=== PATIENT | female | born 1990 | race Caucasian/White ===

== ENCOUNTER 2016-09-29 23:59 | Emergency (ER) | payer BC, OTHER ==
[2016-09-30 03:42] LABS: CHLORIDE,CL 102 mmol/L (101-111); SODIUM,NA 136 mmol/L (135-145)
[2016-09-30] MEDS ORDERED: Ibuprofen 600 MG Tab PO ONE (04:05)
[2016-09-30] MEDS ORDERED: Cephalexin 500 MG Cap PO ONE (04:05)
--- NOTE | 2016-09-30 04:07 | EDM.PDOC ---
ED HPI GENERAL MEDICAL PROBLEM - General Chief Complaint: Neuro Symptoms/Deficits Stated Complaint: NUMB SWOLLEN AND BITES ALL OVER Time Seen by Provider: 09/30/16 01:00 Source of Information: Reports: Patient History Limitations: Reports: No Limitations - History of Present Illness INITIAL COMMENTS - FREE TEXT/NARRATIVE: ED with c/o red spots, possibly bug bites for past week, last few days, joints feel achy and tonight fingers feel numb. Onset: Today Bilateral Leg Pain Score (Numeric/FACES): 8 - Related Data Allergies Allergy/AdvReac Type Severity Reaction Status Date / Time No Known Allergies Allergy Verified 09/30/16 00:35 Home Meds: Home Meds Levonorgestrel [Beth] 1 VAG ASDIRECTED 09/30/16 [History] Past Medical History Cardiovascular History: Reports: None Respiratory History: Reports: None Gastrointestinal History: Reports: None Genitourinary History: Reports: None Musculoskeletal History: Reports: None Neurological History: Reports: None Psychiatric History: Reports: None Endocrine/Metabolic History: Reports: None Hematologic History: Reports: None Immunologic History: Reports: None Oncologic (Cancer) History: Reports: None Dermatologic History: Reports: None - Infectious Disease History Infectious Disease History: Reports: Chicken Pox - Past Surgical History HEENT Surgical History: Reports: Adenoidectomy, Other (See Below) Social & Family History - Family History Family Medical History: Noncontributory - Tobacco Use Smoking Status *Q: Never Smoker Second Hand Smoke Exposure: No - Caffeine Use Caffeine Use: Reports: None - Alcohol Use Days Per Week of Alcohol Use: 0 - Recreational Drug Use Recreational Drug Use: No ED ROS GENERAL - Review of Systems Review Of Systems: See Below Constitutional: Reports: Malaise HEENT: Reports: No Symptoms Respiratory: Reports: No Symptoms Cardiovascular: Reports: No Symptoms Endocrine: Reports: No Symptoms GI/Abdominal: Reports: No Symptoms Musculoskeletal: Reports: Hand Pain Skin: Reports: Pruritis, Rash, Change in Color Psychiatric: Reports: No Symptoms ED EXAM, GENERAL - Physical Exam Exam: See Below Exam Limited By: No Limitations General Appearance: Alert, Anxious, Mild Distress Eye Exam: Bilateral Eye: EOMI Ears: Normal External Exam, Normal TMs Nose: Normal Inspection Throat/Mouth: Normal Inspection Head: Atraumatic, Normocephalic Respiratory/Chest: No Respiratory Distress, Lungs Clear, Normal Breath Sounds Cardiovascular: Normal Peripheral Pulses, Regular Rate, Rhythm, No Edema GI/Abdominal: Normal Bowel Sounds, Soft Neurological: Alert, Oriented Psychiatric: Anxious Skin Exam: Warm, Dry, Intact, Rash (scattered red raised papular lesions over back, legs and few on arms) Course - Vital Signs Last Recorded V/S: Last Vital Signs Temp 96.9 F 09/30/16 04:21 Pulse 63 09/30/16 04:21 Resp 18 09/30/16 04:21 BP 125/59 L 09/30/16 04:21 Pulse Ox 99 09/30/16 04:21 - Orders/Labs/Meds Labs: Laboratory Tests 09/30/16 09/30/16 09/30/16 Range/Units 03:15 03:15 03:15 WBC 15.0 H (5.0-10.0) 10^3/uL RBC 4.93 (4.2-5.4) 10^6/uL Hgb 14.3 (12.0-16.0) g/dL Hct 42.3 (37.0-47.0) % MCV 85.8 (80-100) fL MCH 29.0 (27.0-34.0) pg MCHC 33.8 (33.0-35.0) g/dL Plt Count 272 (150-450) 10^3/uL Neut % (Auto) 75.0 (42.2-75.2) % Lymph % (Auto) 18.0 L (20.5-50.1) % [place] % (Auto) 6.3 (2-8) % Eos % (Auto) 0.5 L (1.0-3.0) % Baso % (Auto) 0.2 (0.0-1.0) % Sodium 136 (135-145) mmol/L Potassium 3.5 L (3.6-5.0) mmol/L Chloride 102 (101-111) mmol/L Carbon Dioxide 22.0 (21.0-31.0) mmol/L Anion Gap 15.5 BUN 14 (7-18) mg/dL Creatinine 0.7 (0.6-1.3) mg/dL Est Cr Clr Drug Dosing 115.01 mL/min Estimated GFR (MDRD) > 60 Glucose 88 (74-105) mg/dL Calcium 9.3 (8.4-10.2) mg/dl C-Reactive Protein 1.0 (0.0-1.3) mg/dL Meds: Medications Discontinued Medications Generic Name Dose Route Start Last Admin Trade Name Steve PRN Reason Stop Dose Admin Cephalexin 500 mg 09/30/16 04:05 09/30/16 04:16 Keflex PO 09/30/16 04:06 500 mg ONETIME ONE Administration Ibuprofen 600 mg 09/30/16 04:05 09/30/16 04:16 Motrin PO 09/30/16 04:06 600 mg ONETIME ONE Administration Departure - Departure Time of Disposition: 04:01 Disposition: Home, Self-Care 01 Condition: Good Clinical Impression: Joint pain, Folliculitis - Discharge Information Instructions: Cellulitis, Adult Forms: ED Department Discharge Additional Instructions: keflex 500mg one 4 times dialy for one week ibuprofen 600mg one every 8 hours as needed for joint pain recheck clinic Tuesday if not improving ice to knee, may wrap with ice for comfort
[2016-09-30 04:28] VITALS: BP 125/59
== END 2016-09-30 04:20 | disposition home or self-care (01) ==
LOC: DL.ED 23:59
DX: L73.9 Follicular disorder, unspecified (principal); Z98.890 Other specified postprocedural states
CPT/HCPCS: 36415; 80048; 85025; 86140; 99283; A9270

== ENCOUNTER 2018-05-01 09:56 | Inpatient (IN) | payer BC, MEDICAID ==
[~2018-05-01 09:56] MED LIST: Acetaminophen 325 MG Tab PO PRN; Sodium Chloride 0.9% 10 ML Syringe FLUSH PRN; Terbutaline 1 MG/ML SDV SUBCUT ONE
[2018-05-01] MEDS ORDERED: Sodium Chloride 0.9% 10 ML Syringe FLUSH PRN (10:00)
[2018-05-01] MEDS ORDERED: Tranexamic Acid 1,000 MG in Sodium Chloride 0.9% 100 ML IV PRN (10:00)
[2018-05-01] MEDS ORDERED: Lactated Ringers 1,000 ML IV SCH ×2 (10:00→13:45)
[2018-05-01] MEDS ORDERED: Ondansetron 4 MG/2 ML SDV IVPUSH PRN (10:00)
[2018-05-01] MEDS ORDERED: Citric Acid/Sodium Citrate Solution 30 ML Cup PO ONE (10:00)
[2018-05-01] MEDS: Lactated Ringers 1,000 ML IV SCH ×3 (10:20→16:09)
[2018-05-01] MEDS ORDERED: Oxytocin/Normal Saline 60 UNIT/1,000 ML BAG ONE (11:06)
[2018-05-01] MEDS ORDERED: Oxytocin/Normal Saline 30 UNIT/500 ML BAG IV SCH (13:12)
[2018-05-01] MEDS ORDERED: diphenhydrAMINE 50 MG/ML SDV IVPUSH PRN (13:42)
[2018-05-01] MEDS ORDERED: Methylergonovine 0.2 MG/1 ML Amp IM PRN (13:42)
[2018-05-01] MEDS ORDERED: Misoprostol 400 MCG (4 X 100 MCG TAB) RECTAL PRN (13:42)
[2018-05-01] MEDS ORDERED: Naloxone 2 MG/2 ML Syringe IVPUSH PRN (13:42)
[2018-05-01] MEDS ORDERED: Measles, Mumps & Rubella Vaccine 0.5 ML SDV SUBCUT ONE (13:42)
[2018-05-01] MEDS ORDERED: Acetaminophen 325 MG Tab PO PRN (13:42)
[2018-05-01] MEDS ORDERED: ePHEDrine 50 MG/ML SDV IVPUSH PRN (13:42)
[2018-05-01] MEDS ORDERED: Acetaminophen/oxyCODONE 325-5 MG Tab PO PRN (13:42)
[2018-05-01] MEDS ORDERED: Fluconazole 100 MG Tab PO ONE ×2 (14:00→19:45)
[2018-05-01] MEDS ORDERED: Metoclopramide 10 MG/2 ML SDV IV PRN (15:25)
[2018-05-01] MEDS: Ketorolac 30 MG/ML SDV IVPUSH SCH (19:47)
[2018-05-01] MEDS: Simethicone 80 MG Tab.Chew PO SCH ×2 (21:03→22:29)
--- NOTE | 2018-05-01 21:06 | OR ---
DATE: 05/01/2018 PREOPERATIVE DIAGNOSES: 1. 39 and 1/7 weeks' gestation. 2. 3, para 1-0-1-1. 3. Class 2 obesity. 4. History of miscarriage. 5. History of section x1. 6. High-risk due to previous obstetrical problem in the third trimester. 7. Subclinical hypothyroidism. 8. Rubella nonimmune. 9. History of genital herpes. 10.Breech presentation at last clinic appointment. POSTOPERATIVE DIAGNOSES: 1. 39 and 1/7 weeks' gestation. 2. 3, para 1-0-1-1. 3. Class 2 obesity. 4. History of miscarriage. 5. History of section x1. 6. High-risk due to previous obstetrical problem in the third trimester. 7. Subclinical hypothyroidism. 8. Rubella nonimmune. 9. History of genital herpes. 10.Breech presentation at last clinic appointment. 11.Status post repeat low transverse section without complications. 12.Baby found to be in compound neck and arm presentation. BRIEF HISTORY: A 27-year-old female admitted to the hospital with the above- listed diagnoses, for planned repeat for breech and due to prior history of , not a good candidate for external cephalad version and vaginal attempt. See admission history and physical for full details. CONSENT: Before patient was brought to the operating room, she had opportunity to have her questions answered. After we discussed indications, risks, benefits, and alternatives of repeat low transverse section including but not limited to potential for injury to internal organs and adjacent structures including large blood vessels, nerves, veins, intestines, bladder, fallopian tubes, ovaries, uterus, and even potential injury to the baby, potential for complications resulting in transfer for her and/or the baby and even potential complications including , risk of bleeding to the point of requiring a blood transfusion as well as its inherent risks was also discussed. Appropriate forms were signed and can be found in the chart. SURGEON: Albina Mckeon MD. GREEN PRIZE PACKER: Caitlyn Gregory MD. SECOND ENROLLMENT SPECIALIST: Josué Yanes, MS-III. ANESTHESIA: Spinal. DETAILS OF PROCEDURE: The patient was brought to the operating room and spinal anesthesia obtained. She was then laid in dorsal supine position with leftward tilt and Chavez indwelling catheter placed. She was prepped and draped in usual sterile fashion with pannus taped up to be held out of the way. A skin incision was made at 12:11 a.m. with scalpel and carried down to the underlying fascia. This layer was then extended bilaterally with cautery and superior fascial edge grasped with Kochers, tented up, and rectus muscles dissected off bluntly and with cautery. Inferior fascial edge, treated in similar fashion. Rectus muscles in midline with hemostats and peritoneal cavity entered with blunt dissection, assisted by some cautery for tight scar tissue. The Josué retractor was then placed in appropriate location for uterine incision decided, attempted to create a bladder flap. There is really insufficient peritoneal lining. Therefore, uterine incision made in a low transverse location at 12:21 a.m., and the baby's head was noted to be at this location prior to the incision. Upon opening the uterus, baby was actually found to be in a neck down hand compound presentation. The baby's head was maneuvered and brought up through the uterine incision. Remainder of the baby delivered easily thereafter. Nose and mouth were bulb suctioned, and 3-vessel umbilical cord was doubly clamped, cut, baby taken to the warmer for further evaluation. Cord blood sample obtained. Placenta was simultaneously being delivered by Dr. Gregory while we were taking care of the baby. It was noted that the edge of the placenta was all the way down into the uterine scar itself, but not an accreta. Uterine cavity cleared of all clots and debris with a dry lap sponge. Hysterotomy site closed with a running lock stitch of 0 Vicryl in the usual fashion. Additional [id number] stitch x1 was placed and ensured hemostasis. This layer was irrigated and cleared of any clots and debris. Josué retractor removed and pericolic gutters cleared of any clots and debris, after which time, we then reinspected the hysterotomy site and it remained hemostatic. The peritoneal layer was closed with a remnant of 0 Vicryl in a running fashion bringing together the rectus muscles at the inferior edge. We then called for another 0 Vicryl stitch to bring together the rectus muscles in the superior aspect as the patient was having vomiting and the intestines were trying to protrude through that peritoneal repair and there was significant concern for potential development of hernia. This layer was then irrigated and cleared of any clots and debris. Fascia was then closed with a running stitch of 0 looped PDS in the usual fashion. Subcutaneous tissues then dried and cleaned and skin closed with mc. The patient tolerated the procedure well. COMPLICATIONS: Loss of suction during closure of the peritoneal layer, therefore, irrigating and use of sponges for drying of each layer was necessary. FINDINGS: Viable male , scores of eight and nine. Weight 7 pounds 12 ounces, grams pending. ESTIMATED BLOOD LOSS: 500 mL. IV FLUIDS: 1200 mL crystalloid. URINE OUTPUT: 600 mL clear. DISPOSITION: Mother to wait in PACU, baby will return to the nursery with the father and will be reunited as soon as possible. [facility] /[id number] MTDD
[2018-05-01] MEDS: Ferrous Sulfate 325 MG Tab PO SCH (22:28)
[2018-05-01] MEDS ORDERED: Promethazine 25 MG/ML SDV IM PRN (22:35)
[2018-05-02] MEDS: Ketorolac 30 MG/ML SDV IVPUSH SCH ×2 (01:17→06:29)
[2018-05-02] MEDS: Levothyroxine 25 MCG Tab PO SCH (06:27)
[2018-05-02] MEDS: Ferrous Sulfate 325 MG Tab PO SCH ×2 (08:39→18:02)
[2018-05-02] MEDS: Prenatal Multivitamin with Calcium/Folic Acid/Iron Tab PO SCH (08:39)
[2018-05-02] MEDS: Docusate Sodium 100 MG Cap PO PRN ×2 (08:39→21:52)
[2018-05-02] MEDS: Simethicone 80 MG Tab.Chew PO SCH ×4 (08:39→21:52)
[2018-05-02] MEDS ORDERED: Dexamethasone 4 MG/ML SDV IV ONE (10:25)
[2018-05-02] MEDS ORDERED: Lidocaine 2% 20 ML MDV ONE (10:25)
[2018-05-02] MEDS ORDERED: Ketorolac 30 MG/ML SDV IVPUSH ONE (10:25)
[2018-05-02] MEDS ORDERED: Bupivacaine 0.75%/D5W 2 ML Amp ONE (10:25)
[2018-05-02] MEDS ORDERED: Morphine PF 1 MG/ML Amp ONE (10:25)
[2018-05-02] MEDS ORDERED: Lactated Ringers 1,000 ML IV ONE (10:25)
[2018-05-02] MEDS ORDERED: Ondansetron 4 MG/2 ML SDV IV ONE (10:25)
[2018-05-02] MEDS ORDERED: Oxytocin/Normal Saline 30 UNIT/500 ML BAG IV ONE (10:36)
[2018-05-02] MEDS: Acetaminophen/oxyCODONE 325-5 MG Tab PO PRN ×3 (12:45→21:52)
[2018-05-02] MEDS: Ibuprofen 800 MG Tab PO PRN (16:56)
[2018-05-03] MEDS: Acetaminophen/oxyCODONE 325-5 MG Tab PO PRN ×5 (02:12→21:24)
[2018-05-03] MEDS: Ibuprofen 800 MG Tab PO PRN ×3 (02:12→17:26)
[2018-05-03] MEDS: Levothyroxine 25 MCG Tab PO SCH (06:13)
--- NOTE | 2018-05-03 09:05 | PN ---
DATE: 05/02/2018 SUBJECTIVE: The patient is a 27-year-old G3, para 2-0-1-2 who is postoperative day 1 after a planned repeat for breech presentation and prior history of . Loss of suction occurred during the procedure, necessitating use of irrigation and sponges for drying. Otherwise, procedure was uncomplicated. The patient has no acute events overnight. She is not yet ambulating and just had Chavez catheter removed this morning, but is tolerating a regular diet. The patient is and states that is going well, although baby has difficulties latching to the right breast. Her pain is well controlled with pain medications, although she notes that she feels a greater pain on the left side of her incision. She is otherwise doing well and is in good spirits for the day. OBJECTIVE: Vital Signs: Today temperature of 97.6 Farenheit, pulse rate 83, blood pressure 112/52, respiratory rate 18, and pulse ox 97% on room air. General: The patient is awake and alert, friendly, and sitting up, nursing baby in bed. HEENT: Normocephalic and atraumatic. Extraocular movements intact. Mucous membranes pink and moist. Neck: Supple with no lymphadenopathy. Heart: Regular rate and rhythm. No murmurs, rubs, or gallops. Lungs: Clear to auscultation bilaterally. No rhonchi or wheezing. Abdomen: Soft, nondistended. Bowel sounds in all 4 quadrants. Uterus is palpated at the level of the umbilicus. Incision is covered by paper tape. Some serosanguinous drainage noted centrally, but no erythema or edema is noted. Extremities: No edema or erythema. Calves are nontender to palpation. LABORATORY DATA: White blood cell count 13.5, up from 11.0 yesterday. Hemoglobin and hematocrit are 9.1/28.1, down from 11.4/34.9 yesterday. ASSESSMENT: Pilar is postoperative day #1 from repeat low-transverse section delivering a male at 39 weeks 1 day gestation. 1. 39 and 1/7 week gestation. 2. 3, para 2-0-1-2. 3. Class 2 obesity. 4. History of miscarriage. 5. History of section x1. 6. High-risk due to previous obstetrical problem in the third trimester. 7. Subclinical hypothyroidism. 8. Rubella non-immune. 9. History of genital herpes. PLAN: 1. Routine cares. 2. Continue encourage breast feeding. 3. Encourage ambulation now that catheter has been removed. 4. We will replace dressing and place Aquacel dressing today. 5. Continue normal diet as tolerated. 6. Anticipate discharge either tomorrow or . Patient seen and examined. Agree with note as scribed on my behalf by Alejandro Hernandez, MS4. -[facility] 05/10/18 0923. MODL /[id number] MTDRyan
[2018-05-03] MEDS: Simethicone 80 MG Tab.Chew PO SCH ×4 (09:21→20:32)
[2018-05-03] MEDS: Prenatal Multivitamin with Calcium/Folic Acid/Iron Tab PO SCH (09:22)
[2018-05-03] MEDS: Ferrous Sulfate 325 MG Tab PO SCH ×2 (09:22→17:26)
[2018-05-03] MEDS: Docusate Sodium 100 MG Cap PO PRN ×2 (09:22→20:32)
[2018-05-04] MEDS: Acetaminophen/oxyCODONE 325-5 MG Tab PO PRN ×3 (02:39→12:11)
[2018-05-04] MEDS: Ibuprofen 800 MG Tab PO PRN ×2 (02:40→12:10)
[2018-05-04] MEDS: Levothyroxine 25 MCG Tab PO SCH (07:58)
[2018-05-04] MEDS: Ferrous Sulfate 325 MG Tab PO SCH (07:59)
[2018-05-04] MEDS: Prenatal Multivitamin with Calcium/Folic Acid/Iron Tab PO SCH (08:00)
[2018-05-04] MEDS: Simethicone 80 MG Tab.Chew PO SCH ×2 (08:00→12:09)
[2018-05-04] MEDS: Docusate Sodium 100 MG Cap PO PRN (08:03)
[2018-05-04] MEDS ORDERED: Bisacodyl 10 MG Supp RECTAL ONE (08:03)
--- NOTE | 2018-05-04 09:04 | PN ---
DATE: 05/03/2018 SUBJECTIVE: The patient is a 27-year-old G3, para 2-0-1-2, postoperative day 2 after planned repeat section for breach presentation and prior history of section. She has no acute events overnight. She has been ambulating, although states that she still has quite a bit of incisional pain, particularly on the right. She has been taking Percocet and Motrin as often as prescribed and feels that it is not helping with the pain. The patient is , states that is going well although she is tired and feels that infant has had difficulty latching today. Has tried a nipple shield at times with some success, but is unsure if difficulty with is due to infant or simply due to her being tired. OBJECTIVE: Vital Signs: Temperature 97.0, pulse rate 77, blood pressure 106/59, respirations 18, and pulse ox 97% on room air. General: Pilar is awake and alert, but tired looking, sitting in bed, nursing infant. HEENT: Normocephalic and atraumatic. Extraocular movements intact. Mucous membranes pink and moist. Neck: Supple. No lymphadenopathy. Heart: Regular rate and rhythm. No murmurs, rubs, or gallops. Lungs: Clear to auscultation bilaterally. No rhonchi or wheezing. Abdomen: Soft and nontender with positive bowel sounds in all 4 quadrants. Uterus is firm at the level of the umbilicus. Incision: Aquacel dressing in place. No surrounding erythema or signs of infection. Extremities: Warm and dry. No edema. No calf tenderness. ASSESSMENT: Pilar is postoperative day 2 from repeat low-transverse section, delivering a male infant at 39 weeks 1-day gestation. 1. 39 and 1/7 week gestation. 2. 3, para 2-0-1-2. 3. Class 2 obesity. 4. History of miscarriage. 5. History of section x1. 6. High-risk due to previous obstetrical problem in 3rd trimester. 7. Subclinical hypothyroidism. 8. Rubella non-immune. 9. History of genital herpes. PLAN: 1. Continue routine cares. 2. Continue encourage with consultation with qa consultant as needed. 3. Encourage ambulation. Discussed taking Percocet and ambulating 30 minutes after taking it in order to encourage more ambulation. 4. Continue normal diet as tolerated. 5. Will need MMR vaccine at discharge. 6. Anticipate discharge tomorrow pending infant circumcision and discharge. Patient seen and examined. Agree with note as scribed on my behalf by Alejandro Hernandez, 4. -[facility] 05/10/18 0924. MODL /[id number] [facility]
[2018-05-04 10:48] VITALS: BP 116/73
--- NOTE | 2018-05-05 07:41 | DISCH ---
ADMITTING DIAGNOSES: 1. A 39 weeks 1-day gestation. 2. 3, para 1-0-1-1. 3. Class 2 obesity. 4. History of miscarriage. 5. History of section x1. 6. High-risk due to previous obstetrical problem in the third trimester. 7. Subclinical hypothyroidism. 8. Rubella nonimmune. 9. History of genital herpes. 10.Breech presentation. DISCHARGE DIAGNOSES: Same plus 1. Status post repeat low transverse section with delivery of a live . 2. Class 2 obesity. 3. Subclinical hypothyroidism. 4. Rubella nonimmune. PROCEDURE: 1. Repeat low transverse section due to breech presentation and previous section. Found to be compound presentation. 2. MMR Administration CONSULTATION: treasury consultant. HISTORY OF PRESENT ILLNESS: Pilar is a 27-year-old, G3, para 1-0-1-1, now para 2-0-1-2, who presented for planned repeat section for breech presentation and history of prior , not a good candidate for external cephalic version and vaginal attempt. labs included blood type A positive, group B streptococcus negative, and rubella nonimmune. HOSPITAL COURSE: The patient was admitted for planned repeat . During the procedure, there was loss of suction during the closure of the peritoneal layer, thus requiring irrigation and use of sponges for drying of each layer. The patient tolerated the procedure well and delivered a viable male with scores of 8 and 9, weighing 7 pounds 12 ounces. Mother was taken to the delivery floor for [id number] and initiation of breast feeding. On postoperative day #1, the Chavez catheter was removed, and the patient was ambulating and tolerating diet well, passing flatus, and pain well managed on oral medications. On postoperative day #3, the patient had a bowel movement. The pain was well controlled, and the patient stated she was ready for discharge. PHYSICAL EXAMINATION: Vital Signs: Reviewed in the [facility] chart. Stable and normal General: Pilar is alert and awake, standing next to infant buggy, appearing in no distress. HEENT: Normocephalic and atraumatic. Extraocular movements are intact. Mucous membranes are pink and moist. Neck: Supple. No lymphadenopathy. Heart: Regular rate and rhythm. No murmurs, rubs, or gallops. Lungs: Clear to auscultation bilaterally. No rhonchi or wheezing. Abdomen: Bowel sounds in all 4 quadrants. Nondistended. Uterus is firm at the level of the umbilicus. Aquacel dressing is in place. Area under pannus is moist but is not erythematous or edematous. No signs of infection. Extremities: Warm and dry. No edema and no calf tenderness. CONDITION: Good. DISPOSITION: Home. DISCHARGE MEDICATIONS: Percocet 5/325 mg 1-2 tabs PO Q4H PRN pain #30 DISCHARGE INSTRUCTIONS: The patient was advised to restrict lifting to only lifting baby or baby in carrier. Can continue diet as tolerated. The patient to call if she notices fever, redness or swelling around her wound. FOLLOWUP: The patient to schedule visit in [address] Cordero for a check. Patient seen and examined. Agree with note as scribed on my behalf by Alejandro Hernandez MS4. -occupational therapy professor 05/10/18 0927 [facility] /[id number] MTDRyan
== END 2018-05-04 15:05 | disposition home or self-care (01) | DRG 540 ==
LOC: UNDOADMOB 09:56 → DL.OB 09:56 → OBSVTOIN 12:21
PROVIDERS: ADMIT Family Medicine; ATTEND Family Medicine
PROC: 10D00Z1 Extraction of Products of Conception, Low, Open Approach (ICD-10-PCS; principal; 2018-05-01)
DX: O32.1XX0 Maternal care for breech presentation, not applicable or unspecified (principal); O34.211 Maternal care for low transverse scar from previous cesarean delivery; O99.284 Endocrine, nutritional and metabolic diseases complicating childbirth; E02 Subclinical iodine-deficiency hypothyroidism; O98.32 Other infections with a predominantly sexual mode of transmission complicating childbirth; A60.00 Herpesviral infection of urogenital system, unspecified; Z3A.39 39 weeks gestation of pregnancy; Z37.0 Single live birth; Z23 Encounter for immunization
CPT/HCPCS: 36415; 59025; 85025; 85027; 86850; 86900; 86901; 90707; 94010; A9270-GY; J0690; J1100; J1885; J2274; J2405; J2590; J2765; J7120

== ENCOUNTER 2022-07-12 09:36 | Inpatient (IN) | payer BC, MEDICAID ==
[~2022-07-12 09:36] MED LIST changes: -Acetaminophen 325 MG Tab PO PRN; +Citric Acid/Sodium Citrate Solution 30 ML Cup PO ONE; -Sodium Chloride 0.9% 10 ML Syringe FLUSH PRN; -Terbutaline 1 MG/ML SDV SUBCUT ONE; +ceFAZolin 2 GM Vial IVPUSH ONE
[2022-07-12] MEDS ORDERED: Lactated Ringers 1,000 ML IV SCH ×2 (10:00)
[2022-07-12] MEDS ORDERED: Sodium Chloride 0.9% 10 ML Syringe FLUSH PRN (10:00)
[2022-07-12] MEDS ORDERED: Carboprost Tromethamine 250 MCG/1 ML Amp IM PRN ×2 (10:00→15:58)
[2022-07-12] MEDS ORDERED: Tranexamic Acid 1,000 MG in Sodium Chloride 0.9% 100 ML IV PRN (10:00)
[2022-07-12] MEDS: Sodium Chloride 0.9% 10 ML Syringe FLUSH SCH ×2 (10:00→20:12)
[2022-07-12] MEDS ORDERED: Methylergonovine 0.2 MG Tab PO PRN (10:00)
[2022-07-12] MEDS ORDERED: Oxytocin 10 Units/1 ML SDV IM PRN (10:00)
[2022-07-12] MEDS ORDERED: Oxytocin/Normal Saline 30 UNIT/500 ML BAG IV SCH (10:00)
[2022-07-12] MEDS ORDERED: Oxytocin/Normal Saline 30 UNIT/500 ML BAG ONE (11:28)
[2022-07-12] MEDS ORDERED: ceFAZolin 2 GM Vial ONE (11:28)
[2022-07-12] MEDS ORDERED: Dexmedetomidine 200 MCG/2 ML SDV ONE (11:41)
[2022-07-12] MEDS ORDERED: Ketorolac 30 MG/ML SDV ONE (11:42)
[2022-07-12] MEDS ORDERED: Oxytocin 10 Units/1 ML SDV ONE (11:43)
[2022-07-12] MEDS ORDERED: Ondansetron 4 MG/2 ML SDV ONE (11:43)
[2022-07-12] MEDS ORDERED: Dexamethasone 4 MG/ML SDV ONE (11:43)
[2022-07-12] MEDS: Lactated Ringers 1,000 ML IV SCH ×3 (12:10→18:04)
[2022-07-12] MEDS ORDERED: diphenhydrAMINE 50 MG/ML SDV IVPUSH PRN (15:58)
[2022-07-12] MEDS ORDERED: Ondansetron 4 MG/2 ML SDV IVPUSH PRN (15:58)
[2022-07-12] MEDS ORDERED: Naloxone 2 MG/2 ML Syringe IVPUSH PRN (15:58)
[2022-07-12] MEDS ORDERED: Misoprostol 400 MCG (4 X 100 MCG TAB) RECTAL PRN (15:58)
[2022-07-12] MEDS ORDERED: Acetaminophen 325 MG Tab PO PRN (15:58)
[2022-07-12] MEDS ORDERED: Acetaminophen/oxyCODONE 325-5 MG Tab PO PRN (15:58)
[2022-07-12] MEDS ORDERED: Methylergonovine 0.2 MG/1 ML Amp IM PRN (15:58)
[2022-07-12] MEDS ORDERED: ePHEDrine 50 MG/ML SDV IVPUSH PRN (15:58)
[2022-07-12] MEDS ORDERED: Measles, Mumps & Rubella Vaccine 0.5 ML SDV SUBCUT ONE (15:58)
[2022-07-12] MEDS: Simethicone 80 MG Tab.Chew PO SCH ×3 (18:04→21:36)
[2022-07-12] MEDS ORDERED: Ketorolac 30 MG/ML SDV IVPUSH SCH (19:00)
[2022-07-12] MEDS: Ketorolac 30 MG/ML SDV IVPUSH SCH (19:06)
[2022-07-12] MEDS: ceFAZolin 1 GM Vial IVPUSH SCH (21:39)
[2022-07-12] MEDS: Docusate Sodium 100 MG Cap PO PRN (21:39)
[2022-07-13] MEDS: Acetaminophen/oxyCODONE 325-5 MG Tab PO PRN ×5 (00:41→21:22)
[2022-07-13] MEDS ORDERED: Calcium Carbonate 500 MG Tab.Chew PO PRN (01:39)
[2022-07-13] MEDS: Ketorolac 30 MG/ML SDV IVPUSH SCH ×2 (01:42→08:02)
[2022-07-13] MEDS: Lactated Ringers 1,000 ML IV SCH (01:44)
[2022-07-13] MEDS ORDERED: Metoclopramide 10 MG/2 ML SDV IVPUSH ONE (03:35)
[2022-07-13] MEDS: ceFAZolin 1 GM Vial IVPUSH SCH ×2 (06:07→13:29)
[2022-07-13] MEDS: Simethicone 80 MG Tab.Chew PO SCH ×4 (07:59→21:21)
[2022-07-13] MEDS: Docusate Sodium 100 MG Cap PO PRN ×2 (07:59→21:28)
[2022-07-13] MEDS: Prenatal Multivitamin with Calcium/Folic Acid/Iron Tab PO SCH (08:01)
[2022-07-13] MEDS: Ferrous Sulfate 325 MG Tab PO SCH (08:03)
[2022-07-13] MEDS: Sodium Chloride 0.9% 10 ML Syringe FLUSH SCH ×2 (10:13→21:21)
[2022-07-13] MEDS: Levothyroxine 88 MCG Tab PO SCH (10:26)
[2022-07-13] MEDS: Ibuprofen 800 MG Tab PO PRN (16:04)
[2022-07-14] MEDS: Ibuprofen 800 MG Tab PO PRN ×2 (02:57→12:22)
[2022-07-14] MEDS: Acetaminophen/oxyCODONE 325-5 MG Tab PO PRN ×3 (02:57→12:22)
[2022-07-14] MEDS: Levothyroxine 88 MCG Tab PO SCH (05:46)
[2022-07-14] MEDS ORDERED: Levothyroxine 88 MCG Tab PO SCH (06:00)
[2022-07-14] MEDS: Prenatal Multivitamin with Calcium/Folic Acid/Iron Tab PO SCH ×2 (07:50→07:59)
[2022-07-14] MEDS: Ferrous Sulfate 325 MG Tab PO SCH (07:50)
[2022-07-14] MEDS: Docusate Sodium 100 MG Cap PO PRN (07:50)
[2022-07-14] MEDS: Simethicone 80 MG Tab.Chew PO SCH ×3 (07:50→12:22)
[2022-07-14] MEDS ORDERED: Metoclopramide 10 MG Tab PO ONE (07:51)
[2022-07-14 08:06] VITALS: BP 119/68; PULSE 58
[2022-07-14] MEDS ORDERED: Ondansetron 4 MG/2 ML SDV IV ONE (16:14)
[2022-07-14] MEDS ORDERED: Dexamethasone 4 MG/ML SDV IV ONE (16:14)
[2022-07-14] MEDS ORDERED: Phenylephrine 1% 10 MG/ML SDV IV ONE (16:14)
[2022-07-14] MEDS ORDERED: OXYTOCIN IV ONE (16:14)
[2022-07-14] MEDS ORDERED: Oxytocin 10 Units/1 ML SDV IV ONE (16:14)
[2022-07-14] MEDS ORDERED: SODIUM CHLORIDE 0.9% IV ONE (16:14)
[2022-07-14] MEDS ORDERED: Ketorolac 30 MG/ML SDV IVPUSH ONE (16:14)
[2022-07-14] MEDS ORDERED: ceFAZolin 2 GM Vial IVPUSH ONE (16:14)
[2022-07-14] MEDS ORDERED: Dexmedetomidine 200 MCG/2 ML SDV IV ONE (16:14)
== END 2022-07-14 16:15 | disposition home or self-care (01) | DRG 787 ==
LOC: DL.OB 09:36 → OBSVTOIN 12:21 → DL.OB 12:21
PROVIDERS: ADMIT Family Medicine; ATTEND Family Medicine
PROC: 10D00Z1 Extraction of Products of Conception, Low, Open Approach (ICD-10-PCS; principal; 2022-07-12)
DX: O34.211 Maternal care for low transverse scar from previous cesarean delivery (principal); O98.32 Other infections with a predominantly sexual mode of transmission complicating childbirth; O99.284 Endocrine, nutritional and metabolic diseases complicating childbirth; O99.02 Anemia complicating childbirth; D64.9 Anemia, unspecified; E03.9 Hypothyroidism, unspecified; O99.214 Obesity complicating childbirth; A60.09 Herpesviral infection of other urogenital tract; Z3A.39 39 weeks gestation of pregnancy; Z37.0 Single live birth; Z98.890 Other specified postprocedural states
CPT/HCPCS: 01961; 36415; 59025; 85025; 85027; 86850; 86900; 86901; 90471; 90707; A9270-GY; J0690; J1100; J1885; J2370; J2405; J2590; J2765; J3490; J7120